=== PATIENT | female | born 1985 | race African-American/Black ===

== ENCOUNTER 2021-03-17 11:30 | Inpatient (IN) | payer OTHER ==
[2021-03-17] MEDS ORDERED: ONDANSETRON *ODT* 4 MG TABLET SL PRN (12:00)
[2021-03-17] MEDS ORDERED: MENTHOL/PHENOL 1 EACH UD MM PRN (12:00)
[2021-03-17] MEDS ORDERED: BISMUTH SUBSALICYLATE 524 MG/30 ML PO PRN (12:00)
[2021-03-17] MEDS ORDERED: MAGNESIUM HYDROX 2400MG/30ML ORAL SUSPENSION 30 ML CUP PO PRN (12:00)
[2021-03-17] MEDS ORDERED: IBUPROFEN 400 MG TABLET (FP) PO PRN (12:00)
[2021-03-17] MEDS ORDERED: chlordiazePOXIDE HCL 25 MG CAPSULE PO PRN (12:00)
[2021-03-17] MEDS ORDERED: MAG HYDROX/AL HYDROX/SIMETH 30 ML UNIT-DOSE CUP PO PRN (12:00)
[2021-03-17] MEDS ORDERED: MAGNESIUM CITRATE 300 ML BOTTLE PO PRN (12:00)
[2021-03-17] MEDS ORDERED: ACETAMINOPHEN 325 MG TABLET (FP) PO PRN ×2 (12:00)
[2021-03-17] MEDS ORDERED: NICOTINE 10 MG CARTRIDGE (INHALER) IH PRN (12:00)
[2021-03-17 15:12] VITALS: BMI 25.9
[2021-03-17] MEDS ORDERED: chlordiazePOXIDE HCL 25 MG CAPSULE PO SCH (17:00)
[2021-03-17] MEDS ORDERED: MELATONIN 5 MG TABLETS PO SCH (22:00)
[2021-03-17] MEDS ORDERED: hydrOXYzine PAMOATE 25 MG CAPSULE (FP) PO PRN ×2 (22:19→22:32)
[2021-03-17] MEDS ORDERED: MELATONIN 5 MG TABLETS PO PRN (23:00)
[2021-03-17] MEDS: PRENATAL VITAMINS W/ FOLIC ACID TABLET (FP) PO SCH (23:15)
[2021-03-17] MEDS: NICOTINE 7 MG/24 HOURS TOPICAL PATCH TD SCH (23:15)
[2021-03-17] MEDS: hydrOXYzine PAMOATE 25 MG CAPSULE (FP) PO SCH (23:16)
[2021-03-17] MEDS ORDERED: cloNIDine HCL 0.1 MG TABLET PO PRN (23:23)
[2021-03-17] MEDS: THIAMINE HCL 100 MG TABLET (FP) PO SCH (23:36)
[2021-03-17] MEDS: METHOCARBAMOL 500 MG TABLET PO PRN (23:36)
[2021-03-18] MEDS: PANTOPRAZOLE 20 MG TABLET PO SCH (10:26)
[2021-03-18] MEDS: PRENATAL VITAMINS W/ FOLIC ACID TABLET (FP) PO SCH (10:26)
[2021-03-18] MEDS: NICOTINE 7 MG/24 HOURS TOPICAL PATCH TD SCH (11:12)
[2021-03-18 13:44] LABS: ALBUMIN 3.4 g/dl (3.4-5.0); BLOOD UREA NITROGEN 14.5 mg/dL (7-18); CALCIUM 8.9 mg/dL (8.5-10.1)
[2021-03-18 13:47] LABS: CREATININE 0.8 mg/dL (0.55-1.3)
[2021-03-18 13:50] LABS: HEMATOCRIT 35.8 % (32.4-45.2); HEMOGLOBIN 11.7 GM/dL (10.7-15.3); MCHC 32.6 g/dl (32.0-36.0); MEAN CELL VOLUME 92.2 fl (80-96); MEAN PLT VOLUME 9.8 fl (7.5-11.1); PLATELET COUNT 222 10^3/uL (134-434); RBC 3.89 M/mm3 (3.60-5.2); RDW 13.7 % (11.6-15.6); WHITE BLOOD COUNT 5.1 K/mm3 (4.0-10.0)
[2021-03-18 14:31] LABS: HIV INTERPRETATION NEGATIVE (NEGATIVE)
[2021-03-18] MEDS: METHOCARBAMOL 500 MG TABLET PO PRN (18:23)
[2021-03-18] MEDS: THIAMINE HCL 100 MG TABLET (FP) PO SCH (22:31)
[2021-03-19] MEDS ORDERED: chlordiazePOXIDE HCL 25 MG CAPSULE PO SCH (05:00)
[2021-03-19] MEDS: PRENATAL VITAMINS W/ FOLIC ACID TABLET (FP) PO SCH (10:07)
[2021-03-19] MEDS: PANTOPRAZOLE 20 MG TABLET PO SCH (10:07)
[2021-03-19] MEDS: NICOTINE 7 MG/24 HOURS TOPICAL PATCH TD SCH (10:07)
[2021-03-19] MEDS ORDERED: POTASSIUM CHLORIDE TABS 20 MEQ TABLET.ER (FP) PO ONE ×3 (14:34→20:30)
[2021-03-19] MEDS: THIAMINE HCL 100 MG TABLET (FP) PO SCH (22:12)
[2021-03-20] MEDS ORDERED: chlordiazePOXIDE HCL 10 MG CAPSULE PO PRN
[2021-03-20] MEDS ORDERED: chlordiazePOXIDE HCL 10 MG CAPSULE PO SCH (05:00)
[2021-03-20 09:16] VITALS: BP 137/90; PULSE 97; TEMP 96.6
[2021-03-21] MEDS ORDERED: chlordiazePOXIDE HCL 10 MG CAPSULE PO SCH (05:00)
[2021-03-22] MEDS ORDERED: chlordiazePOXIDE HCL 10 MG CAPSULE PO ONE (05:00)
== END 2021-03-20 09:30 | disposition other institution (70) | DRG 897 ==
LOC: YASAS 11:30 → Y3N 22:08 → UNDOADMIN 22:08 → Y3N 22:55
PROVIDERS: ADMIT Allergy & Immunology; ATTEND Allergy & Immunology
PROC: HZ2ZZZZ Detoxification Services for Substance Abuse Treatment (ICD-10-PCS; principal; 2021-03-17)
DX: F10.230 Alcohol dependence with withdrawal, uncomplicated (principal); I16.9 Hypertensive crisis, unspecified; F17.210 Nicotine dependence, cigarettes, uncomplicated; E87.6 Hypokalemia
CPT/HCPCS: 36415; 80053; 81025; 84132; 85027; 86780; 87389; 93005; 93010; C9803; J0735; U0003; U0005

== ENCOUNTER 2021-03-17 16:38 | Emergency (ER) | payer OTHER ==
[2021-03-17 17:01] VITALS: BMI 25.9
[2021-03-17 18:02] VITALS: BP 121/80; PULSE 98; TEMP 98
== END 2021-03-17 19:48 | disposition home or self-care (01) ==
LOC: JER 16:38
DX: R03.0 Elevated blood-pressure reading, without diagnosis of hypertension (principal)
CPT/HCPCS: 99283-25